=== PATIENT | male | born 1955 | race Caucasian/White ===

== ENCOUNTER → 2017-10-28 | Outpatient (CLI) | payer BC ==
--- NOTE | 2017-10-28 17:20 | Diagnostic Imaging Report ---
PROCEDURE:US RETROPERITONEAL ( KIDNEY ). COMPARISON:Patients [facility], CT, CT ABDOMEN/PELVIS W, 11/01/2011, 17:07. INDICATIONS:CYST OF KIDNEY TECHNIQUE: Tomas-scale and color sonographic images of the bilateral kidneys and bladder where obtained in transverse and longitudinal planes. FINDINGS: RIGHT KIDNEY: 14.3 cm in length Cysts: Unilocular cyst in the mid/lower pole measures 11.5 x 12.9 mm x 5 cm. Unilocular cyst in the interpolar region measures 18 x 12 x 16 mm. Unilocular cyst in the interpolar region measures 12 x 16 x 21 mm. Solid masses: None Stones: None Hydronephrosis: None Echogenicity: Normal LEFT KIDNEY: 14.8 cm in length Cysts: Unilocular cyst in the interpolar region measures 2.3 x 1.4 x 1.8 cm. Unilocular cyst in the interpolar region measures 1.4 x 1.8 x 1.7 cm. Solid masses: Hyperechoic, non-shadowing lesion in the interpolar cortex measures 9 x 8 x 11 mm. Stones: None Hydronephrosis: None Echogenicity: Normal Bladder: Diffuse bladder wall thickening. No mass. Bladder jets are visible. Prostate: Measures 4.2 x 4.5 x 4.9 cm (48.8 cc). CONCLUSION: 1. Multiple renal cysts as described above. 2. 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 This can be confirmed with CT or MRI dedicated to the kidneys. 3. Prostate hypertrophy with bladder wall thickening suggestive of outlet obstruction. Dictated by: Brooke Katz M.D. on 10/28/2017 at 17:24 Electronically approved by: Brooke Katz M.D. on 10/28/2017 at 17:24
== END ==
LOC: US 15:32
PROVIDERS: ATTEND Urology
DX: N28.1 Cyst of kidney, acquired (principal)
CPT/HCPCS: 76770